=== PATIENT | male | born 1980 | race American Indian/Alaskan Native ===

== ENCOUNTER 2016-11-11 23:11 | Emergency (ER) | payer SELFPAY ==
[2016-11-11] MEDS ORDERED: DILAUDID ONE (23:46)
[2016-11-11] MEDS ORDERED: DILAUDID IV ONE (23:47)
[2016-11-11] MEDS ORDERED: NACL 0.9% 1000 ML 1,000 ML IV ONE (23:48)
[2016-11-11] MEDS ORDERED: ZOFRAN IV ONE (23:48)
--- NOTE | 2016-11-11 23:50 | Emergency Department Report ---
<JANEJOSE J P - Last Filed: 11/12/16 05:45> ED General Adult HPI - General Chief complaint: Abdominal Pain Stated complaint: EMESIS/ABD PAIN Time Seen by Provider: 11/11/16 23:43 - Related Data Previous Rx's Medication Instructions Recorded Last Taken Type HYDROcodone/APAP 7.5-325 [[place] 1 each PO Q8HR PRN #12 tablet 11/12/16 Unknown Rx 7.5-325 mg TAB] Ondansetron [Zofran TAB] 4 mg PO Q8HR PRN #15 tablet 11/12/16 Unknown Rx Tamsulosin [Flomax] 0.4 mg PO QDAY #10 cap 11/12/16 Unknown Rx Allergies Allergy/AdvReac Type Severity Reaction Status Date / Time No Known Allergies Allergy Unverified 05/16/15 11:27 ED Review of Systems ROS: Stated complaint: EMESIS/ABD PAIN Other details as noted in HPI ED Past Medical Hx - Medications Home Medications: Home Medications Medication Instructions Recorded Confirmed Last Taken Type HYDROcodone/APAP 7.5-325 [[place] 1 each PO Q8HR PRN #12 tablet 11/12/16 Unknown Rx 7.5-325 mg TAB] Ondansetron [Zofran TAB] 4 mg PO Q8HR PRN #15 tablet 11/12/16 Unknown Rx Tamsulosin [Flomax] 0.4 mg PO QDAY #10 cap 11/12/16 Unknown Rx ED Course Vital Signs 11/11/16 11/11/16 11/11/16 23:14 23:48 23:50 Temperature 98.1 F Pulse Rate 118 H 81 81 Respiratory 18 22 18 Rate Blood Pressure 148/98 136/86 Blood Pressure [Left] O2 Sat by Pulse 100 Oximetry 11/12/16 11/12/16 11/12/16 00:00 00:30 03:00 Temperature Pulse Rate Respiratory 22 18 18 Rate Blood Pressure 146/89 Blood Pressure [Left] O2 Sat by Pulse Oximetry 11/12/16 06:15 Temperature 98.2 F Pulse Rate 60 Respiratory 18 Rate Blood Pressure Blood Pressure 107/55 [Left] O2 Sat by Pulse 99 Oximetry ED Medical Decision Making - Lab Data Result diagrams: 11/11/16 23:57 11/11/16 23:57 Critical care attestation.: If time is entered above; I have spent that time in minutes in the direct care of this critically ill patient, excluding procedure time. ED Disposition Clinical Impression: Lactic acidosis, Ureterolithiasis, Abdominal pain, acute, right lower quadrant , Dehydration Disposition: DISCHARGED TO HOME OR SELFCARE Is pt being admited?: No Does the pt Need Aspirin: No Condition: Stable Instructions: Dehydration (ED), Kidney Stones (ED), How to Strain Your Urine ( ED) Additional Instructions: Make sure to follow-up with the urologist referred to you today, Dr. Martinez. Return to an emergency department immediately should you develop worsening symptoms, inability to urinate, severe uncontrolled pain, recurrent and persistent vomiting, or other concerning symptoms. Prescriptions: HYDROcodone/APAP 7.5-325 [[place] 7.5-325 mg TAB] 1 each PO Q8HR PRN #12 tablet PRN Reason: Pain Ondansetron [Zofran TAB] 4 mg PO Q8HR PRN #15 tablet PRN Reason: Nausea Tamsulosin [Flomax] 0.4 mg PO QDAY #10 cap Referrals: PRIMARY MD ROMAINE [Primary Care Provider] - 3-5 Days ELLE MARTINEZ MD [Staff Physician] - 3-5 Days Forms: Work/School Release Form(ED) Time of Disposition: 05:26 <KAVITHA LYON - Last Filed: 11/14/16 01:00> ED General Adult HPI - General Source: patient Limitations: Physical Limitation - History of Present Illness Initial comments: This is a 36-year-old male. He is previously unknown to me. Has a history of testicular torsion. Presents to the ER with right-sided abdominal pain and testicular pain. Pain is sharp, increases with range of motion, decreases with rest. Patient reports pain started approximately 1 hour prior to presentation. It does not radiate anywhere. No irritative or obstructive urinary symptoms. No condom use. Patient is sexually active with his "baby mama." -: Sudden Location: abdomen, genitals Radiation: non-radiation Quality: aching, sharp Consistency: constant Improves with: medication, rest Worsens with: movement Associated Symptoms: loss of appetite, malaise, nausea/vomiting, weakness. denies: confusion, chest pain, cough, diaphoresis, fever/chills ED Review of Systems Constitutional: denies: fever Eyes: denies: eye discharge ENT: denies: epistaxis Respiratory: denies: cough Cardiovascular: denies: palpitations Gastrointestinal: abdominal pain Genitourinary: testicular pain. denies: dysuria Musculoskeletal: denies: back pain Skin: denies: lesions Neurological: weakness ED Past Medical Hx - Surgical History Additional Surgical History: Left knee surg - Social History Smoking Status: Current Every Day Smoker Substance Use Type: Alcohol, Marijuana ED Physical Exam - General Limitations: Physical Limitation General appearance: alert, in distress - Head Head exam: Present: atraumatic, normocephalic - Eye Eye exam: Present: normal appearance - ENT ENT exam: Present: normal exam, normal orophraynx, mucous membranes moist, normal external ear exam - Neck Neck exam: Present: normal inspection, full ROM. Absent: tenderness, meningismus - Respiratory Respiratory exam: Present: normal lung sounds bilaterally. Absent: respiratory distress, wheezes, rales, rhonchi, stridor, chest wall tenderness - Cardiovascular Cardiovascular Exam: Present: normal rhythm, tachycardia, normal heart sounds. Absent: systolic murmur, diastolic murmur, rubs, gallop - GI/Abdominal GI/Abdominal exam: Present: soft, tenderness, normal bowel sounds, other (there is lower abdominal tenderness. There is no rebound, guarding or peritoneal signs). Absent: distended, guarding, rigid, pulsatile mass - Rectal Rectal exam: Present: deferred - exam: Present: testicular tenderness, other (there is right-sided testicular tenderness. There is normal testicular lie. There is normal cremassetertic reflex bilaterally.). Absent: scrotal swelling External exam: Present: normal external exam - Extremities Exam Extremities exam: Present: normal inspection - Back Exam Back exam: Present: normal inspection, full ROM. Absent: tenderness, CVA tenderness (R), CVA tenderness (L), muscle spasm, paraspinal tenderness, vertebral tenderness - Neurological Exam Neurological exam: Present: alert, other (Extraocular movements intact. Tongue midline. No facial droop. Facial sensation intact to light touch in the V1, V2 , V3 distribution bilaterally. 5 and 5 strength in 4 extremities.. Sensation is intact to light touch in 4 extremities.). Absent: motor sensory deficit - Psychiatric Psychiatric exam: Present: anxious - Skin Skin exam: Present: warm, dry, intact, normal color. Absent: rash ED Course Vital Signs 11/11/16 11/11/1617 23:14 23:48 23:50 Temperature 98.1 F Pulse Rate 118 H 81 81 Respiratory 18 22 18 Rate Blood Pressure 148/98 136/86 Blood Pressure [Left] O2 Sat by Pulse 100 Oximetry 11/12/16 11/12/16 11/12/16 00:00 00:30 03:00 Temperature Pulse Rate Respiratory 22 18 18 Rate Blood Pressure 146/89 Blood Pressure [Left] O2 Sat by Pulse Oximetry 11/12/16 06:15 Temperature 98.2 F Pulse Rate 60 Respiratory 18 Rate Blood Pressure Blood Pressure 107/55 [Left] O2 Sat by Pulse 99 Oximetry - Reevaluation(s) Reevaluation #1: 11/12/16 00:02 Differential diagnosis: Epididymitis, orchitis, testicular torsion, urinary tract infection, appendicitis, renal colic Assessment and plan: 36-year-old male with history of testicular torsion, lower abdominal pain, testicular pain. His pain will be treated aggressively. An emergent ultrasound is ordered of his testicle. An emergent CT scan of his abdomen and pelvis is ordered. We will reassess once his imaging and laboratory studies have resulted. Reevaluation #2: 11/12/16 01:47 Testicular ultrasound negative for acute disease. Urinalysis pending. CT scan of the abdomen and pelvis is pending. care transferred to Dr Way pending CT results. if CT scan demonstrates no acute surgical disease, and patient can tolerate liquid feeds, and abdomen is soft on repeat examination (it is at this time), I think it would be appropriate to discharge the patient. ED Medical Decision Making - Lab Data Result diagrams: 11/11/16 23:57 11/11/16 23:57 Vital Signs 11/11/16 11/12/16 23:14 00:00 Temperature 98.1 F Pulse Rate 118 H Respiratory 18 22 Rate Blood Pressure 148/98 O2 Sat by Pulse 100 Oximetry
[2016-11-12] MEDS ORDERED: NACL ONE (00:12)
[2016-11-12 00:15] LABS: Hematocrit 48.3 % (35.5-45.6); Mean Corpuscular HGB Conc 33 % (32-34); Mean Corpuscular Hemoglobin 29 pg (28-32); Mean Corpuscular Volume 86 fl (84-94); White Blood Count 11.2 K/mm3 (4.5-11.0)
[2016-11-12 00:23] LABS: Platelet Count 211 K/mm3 (140-440)
[2016-11-12 00:25] LABS: INR 0.94 (0.87-1.13)
[2016-11-12 00:38] LABS: Albumin 3.9 g/dL (3.9-5); Albumin/Globulin Ratio 1.3 %; Alkaline Phosphatase 79 units/L (35-129); BUN/Creatinine Ratio 11.11; Bilirubin,Direct < 0.2 mg/dL (0-0.2); Bilirubin,Indirect 0.1 mg/dL; Bilirubin,Total 0.3 mg/dL (0.1-1.2); Blood Urea Nitrogen 10 mg/dL (9-20); Calcium 8.7 mg/dL (8.4-10.2); Carbon Dioxide 21 mmol/L (22-30); Chloride 103.1 mmol/L (98-107); Glucose 93 mg/dL (75-100); Sodium 143 mmol/L (137-145); Total Protein 6.8 g/dL (6.3-8.2)
[2016-11-12 00:40] LABS: Anion Gap 22 mmol/L
[2016-11-12 00:41] LABS: Alanine Aminotransferase 18 units/L (7-56); Potassium 3.4 mmol/L (3.6-5.0)
--- NOTE | 2016-11-12 01:37 | Ultrasound Report ---
FINAL REPORT PROCEDURE: US TESTICULAR DOPPLER COMP TECHNIQUE: Real-time mayo-scale and color flow Doppler sonography in multiple planes of the scrotum, testicles, and epididymes was performed. Velocity spectral waveform analysis Doppler imaging of the arterial inflow and venous outflow of the testicles was performed with image documentation. CPT 48154 and 13590 HISTORY: right testicular pain COMPARISON: No prior studies are available for comparison. FINDINGS: RIGHT TESTICLE: Size: 4.2 x 1.4 x 3.1 cm . Appearance: Normal size and echotexture . Arterial blood flow: Normal spectral waveforms, flow velocities and color flow images.. Venous blood flow: Normal spectral waveforms and color flow images. Right epididymis: Normal size and echotexture . Hydrocele: None . LEFT TESTICLE Size: 4 x 1.5 x 2.6 cm . Appearance: Normal size and echotexture . Arterial blood flow: Normal spectral waveforms, flow velocities and color flow images.. Venous blood flow: Normal spectral waveforms and color flow images. Leftepididymis: Normal size and echotexture . Hydrocele: None . IMPRESSION: Normal Examination
[2016-11-12 01:41] LABS: Bilirubin,Urine NEG (Negative); Blood,Urine NEG (Negative); Ketones,Urine NEG (Negative); Leukocyte Esterase,Urine NEG (Negative); Mucus,Urine FEW /HPF; Nitrite,Urine NEG (Negative); Protein,Urine <15 mg/dL mg/dL (Negative); Urobilinogen,Urine < 2.0 mg/dL (<2.0)
[2016-11-12 02:36] LABS: Anisocytosis 1+; Blastocytes % (Manual) 0 %; Diff Status Complete; Hypochromasia Few; Platelet Estimate Consistent w Auto
[2016-11-12] MEDS ORDERED: SUBLIMAZE IV ONE (02:40)
[2016-11-12] MEDS ORDERED: SUBLIMAZE ONE (02:46)
[2016-11-12] MEDS ORDERED: NACL 0.9% 1000 ML 1,000 ML IV ONE (02:54)
--- NOTE | 2016-11-12 03:54 | Cat Scan Report ---
FINAL REPORT PROCEDURE: CT ABDOMEN PELVIS W CON TECHNIQUE: Computerized axial tomography of the abdomen and pelvis was performed after the IV injection of iodinated nonionic contrast. HISTORY: Abdominal Pain rlq COMPARISON: No prior studies are available for comparison. FINDINGS: Visualized lower thorax: No significant abnormality. Liver: Normal size and attenuation. Spleen: Normal size and attenuation. Gallbladder and biliary system: Normal. Pancreas: Normal. Adrenals: Normal. Kidneys: There is a 2 millimeter stone in the urinary bladder which appears a recently passed from the right ureter. There is mild right hydronephrosis and hydroureter and obstructive uropathy. Left kidney is unremarkable.. GI tract: There is no bowel obstruction, colitis or enteritis. The appendix is normal.. Lymph nodes and mesentery: Normal. Vasculature: Normal. Bladder: Normal. Reproductive organs: Normal. Peritoneum: There is no ascites or free air, abscess or adenopathy.. Musculoskeletal structures: No significant abnormality. Other: None. IMPRESSION: There is a 2 millimeter stone in the urinary bladder which appears a recently passed from the right ureter. There is mild right hydronephrosis and hydroureter and obstructive uropathy. There is no bowel obstruction, colitis or enteritis. The appendix is normal.. There is no ascites or free air, abscess or adenopathy..
[2016-11-12 06:16] VITALS: BP 107/55
== END 2016-11-12 06:15 | disposition home or self-care (01) ==
LOC: ED 23:11
DX: E87.2 Acidosis (principal); N20.1 Calculus of ureter; E86.0 Dehydration; R10.31 Right lower quadrant pain; F17.200 Nicotine dependence, unspecified, uncomplicated; F12.90 Cannabis use, unspecified, uncomplicated
CPT/HCPCS: 36415; 51701; 74177; 80048; 80074; 81001; 82140; 83690; 85007; 85025; 85610; 87086; 93975; 96361; 96374; 96375; 99284; G0480; J1170; J2405; J3010; J7030; Q9967; 80320

== ENCOUNTER 2017-11-17 11:33 | Emergency (ER) | payer SELFPAY ==
[2017-11-17 12:29] VITALS: BP 146/98
== END 2017-11-17 13:58 | disposition left against medical advice (07) ==
LOC: ED 11:33
DX: M79.89 Other specified soft tissue disorders (principal); Z53.21 Procedure and treatment not carried out due to patient leaving prior to being seen by health care provider